=== PATIENT | female | born 1995 | race Hispanic/Latino ===

== ENCOUNTER 2017-07-18 17:46 | Emergency (ER) | payer OTHER ==
[~2017-07-18 17:46] MED LIST: BIOTIN2500 MCG PO; LEVOTHYROXINE50 MCG PO; LEVOTHYROXINE75 MCG PO; See Long Drug Name
[2017-07-18 18:01] VITALS: BP 107/70
[2017-07-18] MEDS ORDERED: VALTREX1000 MG PO (18:10)
--- NOTE | 2017-07-18 18:10 | ED GENERAL ADULT ---
History of Present Illness General Chief Complaint: General Adult Stated Complaint: STD TESTING Source: patient, family (dad) Exam Limitations: no limitations Vital Signs & Intake/Output Vital Signs & Intake/Output Vital Signs Date Time Temp Pulse Resp B/P B/P Pulse O2 O2 Flow FiO2 Mean Ox Delivery Rate 07/18 1801 98.3 90 18 107/70 98 Room Air Allergies Coded Allergies: NO KNOWN ALLERGIES (05/22/16) Reconcile Medications Biotin (Unknown Strength) CAPSULE (Unknown Dose) PO DAILY SUPPLEMENT ( Reported) Levothyroxine Sodium 75 MCG TABLET 1 TAB PO EOD THYROID (Reported) Levothyroxine Sodium 50 MCG TABLET 1 TAB PO EOD THYROID (Reported) Valacyclovir HCl (Valtrex) 1,000 MG TABLET 2 TAB PO BID ORAL HERPES Triage Note: 22 YO FEMALE TO TRIAGE REQUESTING TEST FOR HERPES. STATES SHE HAS A BLISTER ON HER LIP. Triage Nurses Notes Reviewed? yes Onset: Abrupt Duration: day(s): (3), constant, continues in ED Timing: single episode today Injury Environment: home Severity: moderate, severe No Modifying Factors: none LMP (ages 10-50): unknown : No Patient currently breastfeeds: No HPI: 22-year-old female medical history presents for evaluation of a red bump on her lip. Patient states that she first noticed the bump several days ago and has been persistent. She states that she's had them multiple times in the past. She also reports that she has multiple small ulcerations under her tongue and on her gums. She denies any vaginal discharge or vaginal bleeding urinary symptoms pelvic pain fever or back pain. She is sexually active. No history of STDs. (Raz Medina) Past History Travel History Traveled to [place] past 21 day No Medical History Any Pertinent Medical History? 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 No (Raz Medina) Review of Systems Review of Systems Constitutional: Reports: no symptoms. EENTM: Reports: no symptoms. Respiratory: Reports: no symptoms. Cardiovascular: Reports: no symptoms. GI: Reports: no symptoms. Genitourinary: Reports: no symptoms. Musculoskeletal: Reports: no symptoms. Skin: Reports: see HPI, lesions. Neurological/Psychological: Reports: no symptoms. Hematologic/Endocrine: Reports: no symptoms. Immunologic/Allergic: Reports: no symptoms. All Other Systems: Reviewed and Negative (Raz Mednia) Physical Exam Physical Exam General Appearance: well developed/nourished, no apparent distress, alert, awake Head: atraumatic, normal appearance Eyes: Bilateral: normal appearance, PERRL, EOMI. Ears, Nose, Throat: normal ENT inspection, hearing grossly normal, THERE IS A VESICULAR ERYTHEMATOUS LESION LOCATED ON THE LEFT LOWER LIP. nO DISCHARGE. nO TENDERNESS PALPATION. tHERE ARE ALSO MULTIPLE ULCERATED LESIONS UNDER THE TONGUE AND ON THE GUMS. nO UNDERLYING ERYTHEMA OR PURULENT DISCHARGE. nO PAIN TO PALPATION. pATIENT IS HANDLING SECRETIONS. nO TRISMUS. nO LYMPHADENOPATHY. Neck: normal inspection, supple, full range of motion Respiratory: normal breath sounds, chest non-tender, no respiratory distress, lungs clear Cardiovascular: regular rate/rhythm, normal peripheral pulses Peripheral Pulses: 2+ radial (R), 2+ radial (L) Gastrointestinal: normal bowel sounds, soft, non-tender, no organomegaly Back: normal inspection, normal range of motion, no vertebral tenderness Extremities: normal inspection, normal range of motion, no edema Neurologic/Psych: no motor/sensory deficits, awake, alert, oriented x 3, normal gait Skin: intact, normal color, warm/dry Lymphatic: no anterior cervical ignacio Core Measures ACS in differential dx? No CVA/TIA Diagnosis: No Sepsis Present: No Sepsis Focused Exam Completed? No (Raz Medina) Progress Differential Diagnoses I considered the following diagnoses in my evaluation of the patient: [Herpes virus 1, herpes virus 2, canker sore, viral syndrome, cellulitis, impetigo, angulaR CHELITIS ] Plan of Care: Laboratory Tests 07/18/17 180: Urine Test Cancelled Microbiology 07/18 1802 URINE ROUT: GC DNA Probe - CAN Cancelled: Cancelled via OE: Per MD Decision 07/18 1802 URINE ROUT: Chlamydia DNA Probe (LIDA) - CAN Cancelled: Cancelled via OE: Per MD Decision Patient seen and evaluated. She has an aphthous ulcer versus herpes virus 1 outbreak. Discussed with patient about treatment of both. Advised her to avoid kissing performing oral sex. Keep the area clean and dry apply warm compresses. Patient will be started on Valtrex 2000 mg twice a day for one day. Follow-up with primary care doctor for testing. Discussed return precautions. Patient denies any abdominal/pelvic pain and vaginal discharge or vaginal bleeding or urinary symptoms. Initial ED EKG: none (Raz Medina) Departure Departure Disposition: HOME OR SELF CARE Condition: Stable Clinical Impression Primary Impression: Jaxson martino oral Referrals: Shivani NOEL,Grabiel Mac Additional Instructions: Take Valtrex directed for the full course. Follow up with YOUr primary care doctor for further evaluation. Monitor symptoms return with any concerns. Departure Forms: Customer Survey General Discharge Information Prescriptions: Current Visit Scripts Valacyclovir HCl (Valtrex) 2 TAB PO BID #4 TAB (Raz Medina) PA/MANAGER PHOTOGRAPHY Co-Sign Statement Statement: ED Attending supervision documentation- [] I saw and evaluated the patient. I have also reviewed all the pertinent lab results and diagnostic results. I agree with the findings and the plan of care as documented in the PA's/MANAGER PHOTOGRAPHY's documentation. [X] I have reviewed the ED Record and agree with the PA's/MANAGER PHOTOGRAPHY's documentation. [] Additions or exceptions (if any) to the PAs/MANAGER PHOTOGRAPHY's note and plan are summarized below: [] (Geo NOEL,Clinton Contreras) Critical Care Note Critical Care Note Critical Care Time: non-applicable (Raz Medina)
== END 2017-07-18 18:52 ==
LOC: ERH 17:46
DX: K12.0 Recurrent oral aphthae (principal)
CPT/HCPCS: 81025; 87491; 87591